=== PATIENT | female | born 1950 | race Caucasian/White ===

== ENCOUNTER 2019-01-25 13:25 | Emergency (ER) | payer OTHER ==
[~2019-01-25] VITALS: Ht 154.9 cm; Wt 65.0 kg
[2019-01-25 13:36] VITALS: BP 129/55
== END 2019-01-25 15:18 | disposition home or self-care (01) ==
LOC: ER 13:26
DX: R51 Headache (principal); Z87.820 Personal history of traumatic brain injury; V49.88XA Car occupant (driver) (passenger) injured in other specified transport accidents, initial encounter; Y93.89 Activity, other specified; Y92.413 State road as the place of occurrence of the external cause; Y99.9 Unspecified external cause status
CPT/HCPCS: 99281

== ENCOUNTER 2019-12-31 10:56 | Emergency (ER) | payer BC, OTHER ==
[~2019-12-31] VITALS: Ht 152.4 cm; Wt 60.0 kg
[2019-12-31 11:13] VITALS: BP 119/74
== END 2019-12-31 14:38 | disposition home or self-care (01) ==
LOC: ER 10:56
DX: K91.89 Other postprocedural complications and disorders of digestive system (principal); Z88.6 Allergy status to analgesic agent; Y83.8 Other surgical procedures as the cause of abnormal reaction of the patient, or of later complication, without mention of misadventure at the time of the procedure
CPT/HCPCS: 99281